=== PATIENT | born 2005 | race Two or more races ===

== ENCOUNTER 2024-02-03 17:23 | Emergency (ER) | payer MEDICAID ==
[~2024-02-03] VITALS: Ht 167.6 cm; Wt 43.1 kg
[2024-02-03] MEDS: IV NS 0.9% 1,000 ML BAG IV ONE (18:18)
[2024-02-03 18:20] VITALS: TEMP 98.3
[2024-02-03 18:24] LABS: BASOPHILS # (AUTO) 0.1 K/uL (0.0-0.2); BASOPHILS % (AUTO) 0.4 % (0.0-2.0); EOSINOPHILS # (AUTO) 0.1 K/uL (0.0-0.7); EOSINOPHILS % (AUTO) 0.6 % (0.0-6.0); HEMATOCRIT 46 % (33-51); HEMOGLOBIN 15.3 g/dL (11.5-17.5); LYMPHOCYTES # (AUTO) 1.8 K/uL (0.8-4.8); LYMPHOCYTES % (AUTO) 11.4 % (20.0-44.0); MEAN CORPUSCULAR HEMOGLOBIN 32 PG (26.0-33.0); MEAN CORPUSCULAR HGB CONC 33 g/dl (31.0-36.0); MEAN CORPUSCULAR VOLUME 96 fL (80-100); MONOCYTES # (AUTO) 0.9 K/uL (0.1-1.30); MONOCYTES % (AUTO) 5.5 % (2.0-12.0); NEUTROPHILS # (AUTO) 12.7 K/uL (1.8-8.9); NEUTROPHILS % (AUTO) 82.1 % (43.0-81.0); PLATELET COUNT (AUTO) 390 K/uL (150-450); RED BLOOD CELL COUNT(AUTO) 4.78 MIL/uL (4.0-6.0); RED CELL DISTRIBUTION WIDTH 12.8 % (11.5-15.0); WHITE BLOOD COUNT (AUTO) 15.5 K/uL (4.3-11.0)
[2024-02-03 18:54] LABS: ALBUMIN 4.3 g/dL (3.4-5.0); BILIRUBIN,DIRECT 0.3 mg/dL (0.0-0.2); BILIRUBIN,TOTAL 0.9 mg/dL (0.2-1.0); CALCIUM, SERUM 10.4 mg/dL (8.5-10.1); CREATININE 0.9 mg/dL (0.6-1.3); POTASSIUM 4.1 mmol/L (3.5-5.1); TOTAL PROTEIN, SERUM 8.6 g/dL (6.4-8.2)
[2024-02-03 19:26] LABS: PREGNANCY TEST URINE QUAL NEGATIVE
[2024-02-03 20:11] VITALS: BP 123/97; O2SAT 99
[2024-02-03] MEDS ORDERED: CHLO25CA22 PO (20:43)
[2024-02-03] MEDS ORDERED: CHLORDIAZEPOXIDE HCL 25 MG CAPSULE ONE (20:58)
[2024-02-03] MEDS: CHLORDIAZEPOXIDE HCL 25 MG CAPSULE PO ONE (21:06)
[2024-02-03 23:27] LABS: AMPHETAMINE, URINE NEGATIVE (NEGATIVE); BARBITURATE, URINE NEGATIVE (NEGATIVE); BENZODIAZEPINE, URINE NEGATIVE (NEGATIVE); OPIATE, URINE NEGATIVE (NEGATIVE); PHENCYCLIDINE SCREEN,URINE NEGATIVE (NEGATIVE)
[2024-02-03 23:34] LABS: CANNABINOID, URINE POSITIVE (NEGATIVE); COCCAINE, URINE POSITIVE (NEGATIVE)
== END 2024-02-03 21:17 | disposition home or self-care (01) ==
LOC: ER 17:27
DX: F10.139 Alcohol abuse with withdrawal, unspecified (principal); Y90.5 Blood alcohol level of 100-119 mg/100 ml
CPT/HCPCS: 99284; 96360; 70450; 85025; 80048; 80076; 84703; 36415; 82962; 80320; 80307; J7030; G0480